=== PATIENT | female | born 1935 | race Two or more races ===

== ENCOUNTER → 2017-07-18 | Emergency (ER) | payer OTHER ==
[~2017-07-18] VITALS: Ht 157.5 cm; Wt 67.6 kg
[~2017-07-18] MED LIST: ATENOLOL; ATIVAN1 MG PO; ATIVAN2 MG PO; CATAFLAM50 MG PO; CHLORTHALIDONE; COZAAR25 MG; GLUCOTROL10 MG; GLUCOVANCE 5/501 TAB PO; LOTRISONE CREAM45 GM TP; SINGULAIR; TERCONAZOLE20 GM VG; [UNRECOGNIZED DRUG - OTHER]; [UNRECOGNIZED DRUG - OTHER]
== END | disposition home or self-care (01) ==
LOC: ER 10:49
DX: K52.89 Other specified noninfective gastroenteritis and colitis (principal)

== ENCOUNTER 2017-11-22 11:53 | Outpatient (CLI) | payer OTHER | END 2017-11-22 13:35 | disposition home or self-care (01) | LOC: RAD 11:53 | DX: M19.90 Unspecified osteoarthritis, unspecified site (principal); M12.88 Other specific arthropathies, not elsewhere classified, other specified site ==

== ENCOUNTER 2018-02-17 14:29 | Emergency (ER) | payer OTHER ==
[~2018-02-17] VITALS: Ht 157.5 cm; Wt 67.6 kg
[2018-02-17] MEDS ORDERED: GLIMEPIRIDE4 MG PO (15:06)
[2018-02-17] MEDS ORDERED: LOSARTAN-HCTZ1 EAC1 (15:06)
[2018-02-17] MEDS ORDERED: SYMBICORT 16010.2 GM (15:07)
[2018-02-17] MEDS ORDERED: ZANTAC300 MG (15:07)
== END 2018-02-17 19:57 | disposition home or self-care (01) ==
LOC: ER 14:29
DX: B37.3 Candidiasis of vulva and vagina (principal); I10 Essential (primary) hypertension

== ENCOUNTER 2018-06-13 09:51 | Emergency (ER) | payer OTHER ==
[~2018-06-13] VITALS: Ht 157.5 cm; Wt 68.0 kg
[~2018-06-13 09:51] MED LIST changes: +GLIMEPIRIDE4 MG PO; +LOSARTAN-HCTZ1 EAC1; +SYMBICORT 16010.2 GM; +ZANTAC300 MG
[2018-06-13] MEDS ORDERED: HYZAAR 100-12.1 EACH PO (10:15)
== END 2018-06-13 21:29 | disposition home or self-care (01) ==
LOC: ER 09:51
DX: S00.33XA Contusion of nose, initial encounter (principal); S80.02XA Contusion of left knee, initial encounter; W18.39XA Other fall on same level, initial encounter; Y93.89 Activity, other specified; Y92.098 Other place in other non-institutional residence as the place of occurrence of the external cause; Y99.8 Other external cause status

== ENCOUNTER 2018-07-06 11:18 | Emergency (ER) | payer OTHER ==
[~2018-07-06] VITALS: Ht 157.5 cm; Wt 72.1 kg
[~2018-07-06 11:18] MED LIST changes: +HYZAAR 100-12.1 EACH PO
== END 2018-07-06 18:51 | disposition home or self-care (01) ==
LOC: ER 11:18
DX: K52.9 Noninfective gastroenteritis and colitis, unspecified (principal)

== ENCOUNTER 2018-11-14 08:39 | Outpatient (CLI) | payer OTHER | END 2018-11-14 08:54 | disposition home or self-care (01) | LOC: LAB 08:39 | DX: E03.8 Other specified hypothyroidism (principal); I10 Essential (primary) hypertension; E11.9 Type 2 diabetes mellitus without complications; E78.2 Mixed hyperlipidemia; Z12.11 Encounter for screening for malignant neoplasm of colon; N39.0 Urinary tract infection, site not specified ==

== ENCOUNTER 2019-05-05 11:11 | Emergency (ER) | payer OTHER ==
[~2019-05-05] VITALS: Ht 142.2 cm; Wt 72.1 kg
== END 2019-05-05 15:58 | disposition home or self-care (01) ==
LOC: ER 11:11
DX: K52.89 Other specified noninfective gastroenteritis and colitis (principal)

== ENCOUNTER 2019-05-10 10:29 | Inpatient (IN) | payer OTHER ==
[~2019-05-10] VITALS: Ht 152.4 cm; Wt 59.0 kg
== END 2019-05-12 13:20 | disposition home or self-care (01) | DRG 392 ==
LOC: ER 10:29 → SEC-K 19:21 → SURH 19:42
PROVIDERS: ADMIT Internal Medicine Cardiovascular Disease
PROC: 8E0ZXY6 Isolation (ICD-10-PCS; principal; 2019-05-10)
DX: K52.89 Other specified noninfective gastroenteritis and colitis (principal); J44.1 Chronic obstructive pulmonary disease with (acute) exacerbation; A08.8 Other specified intestinal infections; E86.0 Dehydration; E87.8 Other disorders of electrolyte and fluid balance, not elsewhere classified; B37.3 Candidiasis of vulva and vagina

== ENCOUNTER 2019-12-02 08:25 | Emergency (ER) | payer OTHER ==
[~2019-12-02] VITALS: Ht 162.6 cm; Wt 86.2 kg
== END 2019-12-02 13:43 | disposition home or self-care (01) ==
LOC: ER 08:25
DX: K52.89 Other specified noninfective gastroenteritis and colitis (principal); R10.11 Right upper quadrant pain

== ENCOUNTER 2020-07-14 11:52 | Emergency (ER) | payer OTHER ==
[~2020-07-14] VITALS: Ht 149.9 cm; Wt 74.8 kg
== END 2020-07-14 13:26 | disposition home or self-care (01) ==
LOC: ER 11:52
DX: K29.60 Other gastritis without bleeding (principal); S63.8X2A Sprain of other part of left wrist and hand, initial encounter; S63.8X1A Sprain of other part of right wrist and hand, initial encounter; S83.8X2A Sprain of other specified parts of left knee, initial encounter; S83.8X1A Sprain of other specified parts of right knee, initial encounter; W18.39XA Other fall on same level, initial encounter; Y93.89 Activity, other specified; Y92.018 Other place in single-family (private) house as the place of occurrence of the external cause; Y99.8 Other external cause status

== ENCOUNTER 2020-09-02 13:28 | Inpatient (IN) | payer OTHER ==
[~2020-09-02] VITALS: Ht 147.3 cm; Wt 65.8 kg
[2020-09-02] MEDS ORDERED: TOPROL XL25 M1 (13:50)
[2020-09-02] MEDS ORDERED: ADULT LOW DOSE81 M1 (13:50)
--- NOTE | 2020-09-02 14:01 | NUR ---
SE RECIBE PTE EN AMBULANCIA DESORIENTADA ,LOS PARAMEDICOS REFIEREN QUE LLEVA 2 ROSSI SIN EVACUAR SE LE RUPINDER S/V101.1 TEMP.PTE NO RESPONDE AL HACERLE PREGUNTAS,EL FAMILIAR REFIERE QUE ESTA DESORIENTADA DESDE JOSH.
--- NOTE | 2020-09-02 15:30 | NUR ---
SE EJECUTA ORDEN MEICA EN SKINNER TOTALIDA PACIENTE SE LE REALIZARON MUESTRAS DE VINCENT ADMINISTRACION DE MEDICAMENTOS , PACIENTE QUEDA PENDIENTE DE CONSULTA CON MEDICINA INTERNA Y SE MANTIENE EN OBSERVACION.
--- NOTE | 2020-09-02 16:41 | NUR ---
SE REPITE MUESTRA DE VINCENT BMP YA QUE PERSONAL DE LABORATORIO LLAMO Y NOTIFICO QUE LA MUESTRA TOMADA ESTA HEMOLISADA. SE AUGUSTO BAJO MEDIDAS ASEPTICAS Y ES ENVIADA A LABORATORIO.
--- NOTE | 2020-09-02 17:14 | NUR ---
SE REQUISA NUEVAMENTE EN BANCO DE VINCENT APCH UNIDADES DE PRBC FRACCIONADAS Y SE RE-ORIENTA A FAMILIAR,TUBOS PILOTOS YA EN BANCO DE VINCENT.
== END 2020-09-12 13:04 | disposition home or self-care (01) | DRG 65 ==
LOC: ER 13:28 → SURH 19:38 → MEDI 09-04 23:13 → SURH 09-05 01:05 → MEDI 09-09 16:59
PROVIDERS: ADMIT Internal Medicine Cardiovascular Disease; ATTEND Internal Medicine Cardiovascular Disease
PROC: BW28ZZZ Computerized Tomography (CT Scan) of Head (ICD-10-PCS; 2020-09-02)
PROC: B030YZZ Magnetic Resonance Imaging (MRI) of Brain using Other Contrast (ICD-10-PCS; 2020-09-02)
PROC: 05H533Z Insertion of Infusion Device into Right Subclavian Vein, Percutaneous Approach (ICD-10-PCS; principal; 2020-09-03)
PROC: B24BZZZ Ultrasonography of Heart with Aorta (ICD-10-PCS; 2020-09-05)
PROC: B030ZZZ Magnetic Resonance Imaging (MRI) of Brain (ICD-10-PCS; 2020-09-05)
DX: I63.512 Cerebral infarction due to unspecified occlusion or stenosis of left middle cerebral artery (principal); G81.91 Hemiplegia, unspecified affecting right dominant side; B37.49 Other urogenital candidiasis; J44.9 Chronic obstructive pulmonary disease, unspecified; I10 Essential (primary) hypertension; F41.8 Other specified anxiety disorders; E11.9 Type 2 diabetes mellitus without complications; R47.01 Aphasia; Z20.822 Contact with and (suspected) exposure to COVID-19; B37.3 Candidiasis of vulva and vagina
CPT/HCPCS: 70552; 70553

== ENCOUNTER 2022-02-14 17:28 | Emergency (ER) | payer OTHER ==
[~2022-02-14] VITALS: Ht 152.4 cm; Wt 66.2 kg
[~2022-02-14 17:28] MED LIST changes: +ADULT LOW DOSE81 M1; +TOPROL XL25 M1
[2022-02-14] MEDS ORDERED: SYNTHROID50 MCG PO (17:47)
[2022-02-14] MEDS ORDERED: SINGULAIR10 MG PO (17:47)
[2022-02-14] MEDS ORDERED: METFORMIN HCL500 M3 (17:47)
[2022-02-14] MEDS ORDERED: HYDROCHLOROTHIA25 MG PO (17:48)
== END 2022-02-14 22:57 | disposition home or self-care (01) ==
LOC: ER 17:28
DX: M25.511 Pain in right shoulder (principal); N39.0 Urinary tract infection, site not specified; E11.9 Type 2 diabetes mellitus without complications; Z79.84 Long term (current) use of oral hypoglycemic drugs; I10 Essential (primary) hypertension; Z88.8 Allergy status to other drugs, medicaments and biological substances; Z20.822 Contact with and (suspected) exposure to COVID-19

== ENCOUNTER 2022-04-08 17:49 | Inpatient (IN) | payer OTHER ==
[~2022-04-08] VITALS: Ht 160 cm; Wt 68.0 kg
[~2022-04-08 17:49] MED LIST changes: +HYDROCHLOROTHIA25 MG PO; +METFORMIN HCL500 M3; +SINGULAIR10 MG PO; +SYNTHROID50 MCG PO
[2022-04-08] MEDS ORDERED: NORVASC5 MG (18:34)
== END 2022-04-17 23:36 | disposition home or self-care (01) | DRG 682 ==
LOC: ER 17:49 → SEC-K 21:41 → MEDI 21:41
PROVIDERS: ADMIT Internal Medicine; ATTEND Internal Medicine
DX: N17.8 Other acute kidney failure (principal); A41.89 Other specified sepsis; D72.828 Other elevated white blood cell count; I95.2 Hypotension due to drugs; T40.495A Adverse effect of other synthetic narcotics, initial encounter; Z20.822 Contact with and (suspected) exposure to COVID-19

== ENCOUNTER 2022-10-30 18:17 | Inpatient (IN) | payer OTHER ==
[~2022-10-30] VITALS: Ht 149.9 cm; Wt 49.9 kg
[~2022-10-30 18:17] MED LIST changes: +NORVASC5 MG
[2022-10-30] MEDS ORDERED: PEPCID20 MG (18:32)
[2022-10-30] MEDS ORDERED: RESTORIL15 M1 PO (18:33)
[2022-10-30] MEDS ORDERED: HYDROCHLOROTHIA25 MG PO (18:35)
[2022-10-30] MEDS ORDERED: SEROQUEL50 MG PO (18:36)
[2022-10-30] MEDS ORDERED: COZAAR100 MG PO (18:37)
--- NOTE | 2022-10-30 18:38 | NUR ---
PTE ALERTA Y DESORIENTADA EN COMPANIA DE KUAR Y PARAMEDICOS EN AMBULACIA. PARAMEDICOS REFIEREN HIPOTENCION Y ULCERA SACRAL. PTE CANALIZADA EN MANO IZQUIERDA CON ANGIO #20 AREA RODRIGO DE EDEMA Y ENROJECIMIENTO CON .9NSS. SE REALIZA EKG SE MUESTRA AL DR. BLANTON EL CUAL EVALUA Y FIRMA EL MISMO. SE MIDEN S/V Y SE UBICA EN CUBICULO 13 Y SE COLOCA MONITOR CARDIACO.
--- NOTE | 2022-10-30 19:04 | NUR ---
SE EDUCA A FAMILIAR DE PTE SOBRE [place] MEDICO SHITAL REFIERE ENTENDER. SE RUPINDER MUESTRAS DE LABORATORIO UTILIZANDO MEDIDAS ASEPTICAS. SE COLOCA H/L A PTE Y SE ADMINISTRAN MEDICAMENTOS LOS CUALES TOLERA.
== END 2022-11-19 20:45 | disposition home or self-care (01) | DRG 580 ==
LOC: ER 18:17 → MEDI 22:56
PROVIDERS: ADMIT Internal Medicine; ATTEND Internal Medicine
PROC: 8E0ZXY6 Isolation (ICD-10-PCS; 2022-11-02)
PROC: 0QB10ZZ Excision of Sacrum, Open Approach (ICD-10-PCS; principal; 2022-11-04)
PROC: 0JB70ZX Excision of Back Subcutaneous Tissue and Fascia, Open Approach, Diagnostic (ICD-10-PCS; 2022-11-04)
PROC: 4A12X4Z Monitoring of Cardiac Electrical Activity, External Approach (ICD-10-PCS; 2022-11-07)
PROC: 02HV33Z Insertion of Infusion Device into Superior Vena Cava, Percutaneous Approach (ICD-10-PCS; 2022-11-10)
PROC: 30243N1 Transfusion of Nonautologous Red Blood Cells into Central Vein, Percutaneous Approach (ICD-10-PCS; 2022-11-10)
PROC: 0JD70ZZ Extraction of Back Subcutaneous Tissue and Fascia, Open Approach (ICD-10-PCS; 2022-11-11)
PROC: 0JD70ZZ Extraction of Back Subcutaneous Tissue and Fascia, Open Approach (ICD-10-PCS; 2022-11-18)
DX: L89.154 Pressure ulcer of sacral region, stage 4 (principal); B37.89 Other sites of candidiasis; E87.1 Hypo-osmolality and hyponatremia; N17.9 Acute kidney failure, unspecified; N39.0 Urinary tract infection, site not specified; B37.2 Candidiasis of skin and nail; E11.622 Type 2 diabetes mellitus with other skin ulcer; I10 Essential (primary) hypertension; J45.909 Unspecified asthma, uncomplicated; D64.9 Anemia, unspecified; B96.20 Unspecified Escherichia coli [E. coli] as the cause of diseases classified elsewhere; B95.62 Methicillin resistant Staphylococcus aureus infection as the cause of diseases classified elsewhere; R63.0 Anorexia; Z66 Do not resuscitate; Z74.01 Bed confinement status
CPT/HCPCS: 72198